=== PATIENT | male | born 1995 | race Caucasian/White ===

== ENCOUNTER 2018-05-14 11:10 | Emergency (ER) | payer MEDICAID ==
[~2018-05-14] VITALS: Ht 193 cm; Wt 90.7 kg
[2018-05-14 11:19] VITALS: BP_SYST 118
[2018-05-14] MEDS ORDERED: MORPHINE 4 MG/ML INJ. SYRINGE IM ONE (12:00)
[2018-05-14] MEDS ORDERED: MORPHINE SULFATE 10 MG/ML VIAL ONE (12:17)
[2018-05-14 13:42] VITALS: BP_SYST 122
== END 2018-05-14 13:42 | disposition home or self-care (01) ==
LOC: SED 11:10
DX: S52.091A Other fracture of upper end of right ulna, initial encounter for closed fracture (principal); S52.91XA Unspecified fracture of right forearm, initial encounter for closed fracture; F84.0 Autistic disorder; W18.09XA Striking against other object with subsequent fall, initial encounter; Y93.89 Activity, other specified; Y92.39 Other specified sports and athletic area as the place of occurrence of the external cause; Y99.8 Other external cause status
CPT/HCPCS: 29105; 73090; 73110; 96372; 99283; J2270